=== PATIENT | female | born 1955 | race Caucasian/White ===

== ENCOUNTER 2018-11-29 08:09 | Emergency (ER) | payer MEDICAID ==
[~2018-11-29] VITALS: Ht 157.5 cm; Wt 46.7 kg
--- NOTE | 2018-11-29 08:32 | NUR ---
PT AMBULATED TO BED 5
[2018-11-29 08:33] VITALS: BP 123/81
--- NOTE | 2018-11-29 08:33 | NUR ---
BIB self w c/o L breast/march pain x2 days 05/21, throbbing, painful upon touch. pt is afebrile at this time. Pt states she had surgery 1 year ago for abcess drainage to same area. L march/breast has redness, slight swelling and peeling skin to the area VSS; PATIENT POSITIONED FOR COMFORT; HOB ELEVATED; BEDRAILS UP X2; BED DOWN. ER MD MADE AWARE OF PT STATUS.
[2018-11-29] MEDS ORDERED: CLINDAMYCIN 150 MG CAP PO ONE (09:20)
[2018-11-29] MEDS ORDERED: KETOROLAC 60 MG/2 ML VIAL IM ONE (09:20)
--- NOTE | 2018-11-29 09:25 | NUR ---
DR. LOU EVALUATING PT AT BEDSIDE
[2018-11-29 09:55] VITALS: BP 120/81
--- NOTE | 2018-11-29 09:58 | NUR ---
Patient discharged with v/s stable. Written and verbal after care instructions given and explained. Patient alert, oriented and verbalized understanding of instructions. Ambulatory with steady gait. All questions addressed prior to discharge. ID band removed. Patient advised to follow up with PMD. Rx of MOTRIN AND CLINDAMYCIN given. Patient educated on indication of medication including possible reaction and side effects. Opportunity to ask questions provided and answered.
== END 2018-11-29 09:58 | disposition home or self-care (01) ==
LOC: MED 08:09
DX: N61.0 Mastitis without abscess (principal); I10 Essential (primary) hypertension; E11.9 Type 2 diabetes mellitus without complications; Z86.73 Personal history of transient ischemic attack (TIA), and cerebral infarction without residual deficits; Z88.2 Allergy status to sulfonamides; Z88.8 Allergy status to other drugs, medicaments and biological substances; Z87.42 Personal history of other diseases of the female genital tract
CPT/HCPCS: 96372; 99283; J1885